=== PATIENT | female | born 1960 | race American Indian/Alaskan Native ===

== ENCOUNTER 2025-02-10 11:47 | Outpatient (CLI) | payer MEDICARE, SELFPAY ==
--- OUTSIDE RECORDS SUMMARY | 2025-02-10 11:53 | XMS_ITS | Encounter Summary ---
Author Organization [facility] Address [address] [place] [address] Care Team Providers Care Creel Operator Name Role Phone Harpreet Duarte MD Primary Care Provider [phone] Reason for Visit * Reason Comments Medication Refill Encounter Details Date Type Department Care Team (Late Contact Info) Description 06/24/2014 Refill [facility] Cancer and Breast Med Onc [place] [address] [place] [address] Fazal, Apolinar Ag MD [address] [place] [address] Social History Tobacco Use Types Packs/Day Years Used Date Smoking Tobacco: Former Cigarettes 1 20 0 08/07/1985 - 08/07/2005 Smokeless Tobacco: Never Alcohol Use Standard Drinks/Week Comments Yes 0.8 (1 standard drink = 0.6 oz p ure alcohol) social Comments No Sex and Gender Information Value Date Recorded Sex Assigned at Not on file 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 Gender Identity Not on file Sexual Orientation Not on file Occupation Industry Job Start Date Job End Date Not on file Not on file Not on file Not on file documented as of this encounter Miscellaneous Notes * Telephone Encounter - Lacey Larios RN - 06/24/2014 3:26 PM CST SCRIPT REFILLED for effexor AL CARE GIVER documented in this encounter Plan of Treatment Upcoming Encounters Date Type Department Care Team (Late Contact Info) Description 02/16/2025 8:45 AM CDT Office Visit [facility] Heart [facility] - [facility] [address] [place] [address] Ramy Plummer MD [address] [place], [place] [id number] 02/20/2025 10:45 AM CDT Office Visit [facility] Pulmonology [facility] [address] [place] [address] Shell Durand MD [address] [place] [address] 05/25/2025 1:40 PM CDT Office Visit [facility] Primary Care [facility] [address] [place] [address] Harpreet Duarte MD [address] [facility] [address] [place] [address] documented as of this encounter Visit Diagnoses Not on filedocumented in this encounter Care Teams Creel Operator Relationship Specialty Start Date End Date Harpreet Duarte MD PCP - General Internal Medicine 08/07/13 documented as of this encounter
--- OUTSIDE RECORDS SUMMARY | 2025-02-10 11:53 | XMS_ITS | Clinical Summary ---
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 Gender Identity Not on file Sexual Orientation Not on file Plan of Treatment Health Maintenance Due Date Last Done Comments Hepatitis C Virus (HCV) Screening 1961 TdaP Immunization 1961 Pap Smear 1982 Cervical Cancer Screening (CCS) 1991 HPV/Cotest 1991 Colonoscopy 2006 Colorectal Cancer Screening 2006 Cologuard 2011 Immunochemical Fecal Occult Blood 2011 Mammogram 2011 Pneumococcal Immunization (5 0+ years) (1 of 1 - PCV) 2011 Zoster Immunization (1 of 2) 2011 Influenza Immunization (#1) 2024 SARS-COV-2 Immunization ( - 2023-25 season) 2024 Respiratory Syncytial Virus (RSV) Immunization (Adult) (1 - 1-dose 75+ series) 01/20/2036 Hepatitis B Immunization Aged Out No longer eligible based on patient's age to complete this topic Meningococcal Immunization (ACWY) Aged Out No longer eligible based on patient's age to complete this topic Pneumococcal Immunization Combined Aged Out No longer eligible based on patient's age to complete this topic Rotavirus Immunization Aged Out No lo nger eligible based on patient's age to complete this topic
--- OUTSIDE RECORDS SUMMARY | 2025-02-10 11:53 | XMS_ITS | Encounter Summary ---
Author Organization [facility] Address [address] [place] [address] Care Team Providers Care Packaging Mechanic Name Role Phone Harpreet Duarte MD Primary Care Provider [phone] Reason for Visit * Reason Onset Date Comments Surgical Clearance 02/09/2025 Encounter Details Date Type Department Care Team (Late st Contact Info) Description 02/09/2025 Telephone [facility] Heart and Vascular At [facility] [address] [place] [address] Ramy Plummer MD [address] [place] [address] [address] [place] [address] Surgical Clearance Social History Tobacco Use Types Packs/Day Years Used Date Smoking Tobacco: Former Cigarettes 1 20 0 08/07/1985 - 08/07/2005 Passive Smoke Exposure: Past Smokeless Tobacco: Never Alcohol Use Standard Drinks/Week Comments Yes 0.8 (1 standard drink = 0.6 oz p ure alcohol) social Financial Resource Strain Answer Date R ecorded How hard is it for you to pa y for the very basics like food, housing, medical care, and heating? Not hard at all 04/11/2022 Food Insecurity Answer Date Recorded In the past 12 months, have you worried that your food would run out before you had money to buy more? Never true 04/11/2022 In the past 12 months, did y ou run out of food and didn't have money to buy more? Never true 04/11/2022 Transportation Needs Answer Date Record ed In the past 12 months, has l ack of transportation kept you from medical appointments or from getting medications? No 04/11/2022 Lack of Transportation (Non-Medical) Not on file 04/11/2022 Feeling Safe Answer Date Recorded Are you in a relationship wi th someone who hurts you emotionally and/or physically? 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 The patient is scheduled for a knee procedure on 03/06/25. Nuzhat states she faxed a clearance formon 02/09 at 10:45. If you have any questions please give the Nuzhat a call at [phone]. Thank you. * Telephone Encounter - Chata Shen RN - 02/09/2025 12:11 PM CDT Spoke with pt regarding appointment. Rescheduled her to a sooner appt. * Telephone Encounter - Chata Shen RN - 02/09/2025 11:45 AM CDT LMOM with call back number to discuss. * Telephone Encounter - Neda Vasquez - 02/09/2025 11:16 AM CDT Pt called today and stated that she needs a surgical clearance for a knee surgery that is schedule for 03-06-25 [phone] Thks documented in this encounter Plan of Treatment Upcoming Encounters Date Type Department Care Team (Late st Contact Info) Description 02/16/2025 8:45 AM CDT Office Visit [facility] Heart and Vascular - [facility] [address] [place] [address] Ramy Plummer MD [address] [place] [address] 02/20/2025 10:45 AM CDT Office Visit [facility] Pulmonology [facility] [address] [place] [address] Shell Durand MD [address] [place] [address] 05/25/2025 1:40 PM CDT Office Visit [facility] Primary Care [facility] [address] [place] [address] Harpreet Duarte MD [address] [facility] [address] [place] [phone] documented as of this encounter Visit Diagnoses Not on filedocumented in this encounter Care Teams Packaging Mechanic Relationship Specialty Start Date End Date Harpreet Duarte MD PCP - General Internal Medicine 08/07/13 documented as of this encounter
--- OUTSIDE RECORDS SUMMARY | 2025-02-10 11:53 | XMS_ITS ---
Author Organization [facility] Address [address] [place] [address] Care Team Providers Care Pathologist Name Role Phone Harpreet Duarte MD Primary Care Provider Active Problems Patient Care Coordination No te Formatting of this note migh t be different from the original. Primary Care: Harpreet Duarte MD Referring Provider: Harpreet Duarte MD [address] [place] [address] Other: Other: Library Helper- Dr. Elian Parrish Office Ramy Plummer MD- [facility] Heart & Vascular ( [facility]) P [id number] 09/25/24 Prev 10/09/22 Problem Noted Date Diagnosed Date CAD 03/04/2024 Overview (03/04/2024): S/P PCI LAD 12/20 LVEF 42% ex nuc stress 12/20 Recurrent major depressive disorder 04/09/2023 Restless leg syndrome 04/09/2023 History of breast cancer 10/09/2022 Lumbar stenosis with neurogenic claudication Hx of bilateral mastectomy 01/31/2022 Hypertrophic cardiomyopathy 11/23/2015 Overview (09/09/2024): Mid septal akinesis, preserved LV fxn, no LVOT obstruct echo (I reviewed) 09/14 cardiac MRI 10/12 LV findings unchanged echo 04/21 SVT 09/02/2013 Overview (11/23/2022): HR 180 heart monitor 08/12 Essential hypertension 09/02/2013 Goiter 08/07/2013 Adjustment reaction 08/07/2013 Menopausal disorder 08/07/2013 Current Treatment and Therapy Plans No current plan information found. Past Treatment and Therapy Plans No past plan information found. 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, left 09/02/2013 12/17/2020 Overview (05/28/2014): Stage: Clinical T1 N0; left pT1c N0, right pT1b N0 Date of diagnosis: 09/01/13 Diagnosis: left low grade 1.3 cm IDC 0/1 LN ER(+) MA(+) HER 2 (-) right low grade 0.8 cm ILC 0/4 NL ER(+) MA(+) Her 2 (-) Surgeon: Marisa Gomez Surgery: 11/10/13: bilateral TM/SLN and bilateral TE; 02/03/14: bilateral SHAE; 02/07/14: left flap removal secondary to clotting and TE placement; 05/22/14: left implant placement Medical Oncologist: Fazal Chemotherapy: none Radiation: none Hormonal therapy: Letrozole 2.5 mg daily started 11/25/13 Oncotype 14 (9% recurrence) BRCA- insurance denied Cardiomyopathy 09/02/2013 08/31/2015 Tachycardia 08/07/2013 09/02/2013 Frozen shoulder 08/07/2013 12/17/2020
--- OUTSIDE RECORDS SUMMARY | 2025-02-10 11:53 | XMS_ITS | Encounter Summary ---
Author Organization [facility] Address [address] [place] [address] Care Team Providers Care Orthopedic Physician Name Role Phone Harpreet Duarte MD Primary Care Provider [phone] Reason for Visit * Reason Onset Date Comments Pre Authorization- Orthoplasty 04/27/2023 Encounter Details Date Type Department Care Team (Late st Contact Info) Description 04/27/[address] 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 Gender Identity Not on file Sexual Orientation Not on file Occupation Industry Job Start Date Job End Date Not on file Not on file Not on file Not on file documented as of this encounter Miscellaneous Notes * Telephone Encounter - Rosie Espinosa - 04/27/2023 2:40 PM CDT Medical Surgical Clearance on doctor desk waiting or Dr.Kazdan mora [facility] : Surgery date 05/01/2023 [phone] * Telephone Encounter - Janet Olsen - 04/27/2023 11:40 AM CDT Prior Authorization Request Caller: Yulissa Lopez states that she faxed the request over to the office twice but still hasn't heard back. Date of procedure is 05/01 Name of Medication or Procedure: Orthoplasty right Hip Reason: Arthritis of Right Hip [phone] documented in this encounter Plan of Treatment Upcoming Encounters Date Type Department Care Team (Late st Contact Info) Description 02/16/2025 8:45 AM CDT Office Visit [facility] Heart and Vascular - [facility] [address] [place] [address] Ramy Plummer MD [address] [place] [address] 02/20/2025 10:45 AM CDT Office Visit [facility] Pulmonology [facility] [address] [place] [address] Shell Durand MD [address] [facility] [address] [place] [address] 05/25/2025 1:40 PM CDT Office Visit [facility] [address] [place] [address] Harpreet Duarte MD [address] [place] [address] [address] [place] [address] documented as of this encounter Visit Diagnoses Not on filedocumented in this encounter Additional Health Concerns Assessment Noted Time PHQ-9 Depression Total Score: 2 04/11/20 22 2:35 PM CDT documented as of this encounter Care Teams Orthopedic Physician Relationship Specialty Start Date End Date Harpreet Duarte MD PCP - General Internal Medicine 08/07/13 documented as of this encounter
--- OUTSIDE RECORDS SUMMARY | 2025-02-10 11:53 | XMS_ITS | Clinical Summary ---
Author Organization [facility] Address [address] [place] [address] Care Team Providers Care Stock Car Driver Name Role Phone Harpreet Duarte MD Primary Care Provider [phone] Allergies Active Allergy Reactions Criticality Noted Date Comments Bupropion Hcl Other (See Comments) 04/20/2021 Flare rls Medications SUMAtriptan (IMITREX) 50 mg tablet Take 1 Tab by mouth 1 time daily as needed. may repeat in 2 hours; max dose 200mg in 24 hours Active venlafaxine (EFFEXOR XR) 150 mg Extended Release 24 hour capsuleIndications :Hot flashes,Anxiety disorder, unspecified type,Post-menopaus al Take 1 Capsule (150 mg) by mouth daily. 90 Capsule 3 05/18/20 23 Active aspirin (ECOTRIN EC) 81 mg Tablet, Delayed Release (E.C.) Take 1 Tablet (81 mg) by mouth daily. 12/25/19 24 Active omeprazole (PriLOSEC) 40 mg Capsule, Delayed Release(E.C.) take 1 capsule by mouth every day 100 Capsule 3 01/07/20 24 Active Additional Information Patient not taking.Reported on 09/25/2024 clopidogreL (PLAVIX) 75 mg Tablet Take 1 Tablet (75 mg) by mouth daily. Take 300mg (4 tablets) loading dose in the AM and then 75mg once daily thereafter 100 Tablet 3 02/05/20 24 Active gabapentin (NEURONTIN) 300 mg capsuleIndications :Restless leg syndrome take 1 capsule by mouth three times a day 300 Capsule 3 02/26/20 24 Active atorvastatin (Lipitor) 80 mg tablet Take 1 Tablet (80 mg) by mouth daily. 90 Tablet 4 03/04/20 24 Active metoprolol succinate (TOPROL XL) 100 mg Extended Release 24 hour tablet take 1 tablet by mouth every day 90 Tablet 3 03/18/20 24 Active HYDROcodone-acetam inophen (NORCO) 5-325 mg tabletIndications: Osteoarthritis of right knee, unspecified osteoarthritis type Take 1 Tablet by mouth every 4 hours as needed for Pain, Moderate. Max Daily Amount: 6 Tablets 42 Tablet 02/03/20 25 Active HYDROcodone-acetam inophen (NORCO) 5-325 mg tabletIndications: Osteoarthritis of right knee, unspecified osteoarthritis type Take 1 Tablet by mouth every 4 hours as needed for Pain, Moderate. Max Daily Amount: 6 Tablets 42 Tablet 01/09/20 25 025 Discontin ued(Reord er) HYDROcodone-acetam inophen (NORCO) 5-325 mg tabletIndications: Osteoarthritis of right knee, unspecified osteoarthritis type Take 1 Tablet by mouth every 4 hours as needed for Pain, Moderate. Max Daily Amount: 6 Tablets 42 Tablet 01/23/20 25 025 Discontin ued(Reord er) Active Problems Patient Care Coordination No te Formatting of this note migh t be different from the original. Primary Care: Harpreet Duarte MD Referring Provider: Harpreet Duarte MD [address] [place] [phone] Other: Other: Grievance Manager- Dr. Elian Parrish Office Ramy Plummer MD- [facility] ( [facility]) P [id number] 09/25/24 Prev 10/09/22 Problem Noted [...] 08/07/2013 Adjustment reaction 08/07/2013 Menopausal disorder 08/07/2013 Resolved Problems Problem Noted Date Diagnosed Date [...] grade 1.3 cm IDC 0/1 LN ER(+) MO(+) HER 2 (-) right low grade 0.8 cm ILC 0/4 NL ER(+) MO(+) Her 2 (-) Surgeon: Marisa Gomez Surgery: 11/10/13: bilateral TM/SLN and bilateral TE; 02/03/14: bilateral SHAE; 02/07/14: left flap removal secondary to clotting and TE placement; 05/22/14: left implant placement Medical Oncologist: Fazal Chemotherapy: none Radiation: none Hormonal therapy: Letrozole 2.5 mg daily started 11/25/13 Oncotype 14 (9% recurrence) BRCA- insurance denied Cardiomyopathy 09/02/2013 08/31/2015 Tachycardia 08/07/2013 09/02/2013 Frozen shoulder 08/07/2013 12/17/2020 Encounters Date Type Department Care Team Description 02/09/2025 Telephone [facility] V[facility] At [place] [address] [place] [address] Ramy Plummer MD Surgical Clearance 02/02/2025 Refill [facility] Primary Care [address] [place] [address] Harpreet Duarte MD Osteoarthritis of right knee, unspecified osteoarthritis type 01/22/2025 [facility] [address] [place] [phone] Harpreet Duarte MD Osteoarthritis of right knee, unspecified osteoarthritis type 01/13/2025 External Device Data [facility] ABSTRACTION Provider, Abstract 01/08/[address] [place] [address] Harpreet Duarte MD Osteoarthritis of right knee, unspecified osteoarthritis type 01/06/2025 External Device Data [facility] ABSTRACTION Provider, Abstract 01/06/2025 External Device Data [facility]STRACTION Provider, Abstract 01/06/2025 External Device Data [facility]STRACTION Provider, Abstract 12/25/2024 Orders Only [address] [place] [address] Provider, Abstract 12/25/[address] [place] [address] Harpreet Duarte MD 12/19/[address] [place] [address] Harpreet Duarte MD Osteoarthritis of right knee, unspecified osteoarthritis type 12/11/[address] [place] [address] Harpreet Duarte MD Osteoarthritis of right knee, unspecified osteoarthritis type 12/03/2024 Results Follow-Up [facility] Gastroenterology [facility] [address] [facility] [address] [place] [address] Douglas Johnson, DO PATHOLOGY 12/02/2024 8:00 AM CDT - 12/02/2024 8:30 AM CDT Surgery [facility] [address] [facility] [address] [place] [address] Douglas Johnson, DO COLONOSCOPY 12/02/2024 7:42 AM CDT Anesthesia Event [facility] [address] [place] [address] Cyrus Fuller MD 12/02/2024 7:13 AM CDT - 12/02/2024 8:53 AM CDT Hospital Encounter [facility] [address] [place] [address] Douglas Johnson, Screen for colon cancer Discharge Disposition: Home or Self Care 12/02/2024 External Device Data ST[facility] ABSTRACTION Provider, Abstract 12/01/2024 Refill [facility] Care [address] [address] Harpreet Duarte MD Osteoarthritis of right knee, unspecified osteoarthritis type 11/21/2024 Refill [facility] Care [address] [address] Harpreet Duarte MD Osteoarthritis of right knee, unspecified osteoarthritis type 11/11/2024 External Device Data [facility] ABSTRACTION Provider, Abstract 11/11/[address] [address] Harpreet Duarte MD Osteoarthritis of right knee, unspecified osteoarthritis type from Last 3 Months Immunizations Immunization Administration Dates Next Due (ADACEL/BOOSTRIX)(10 YR UP) TDAP VACCINE, 0.5ML, IM 08/07/2013 INFLUENZA VACCINE QUADRIVALENT 6 MOS UP PF IM Influenza Seasonal Unspecified Formulation IM Family History Medical History Relation Name Comments High Cholesterol Brother 1 Hypertension Brother 1 Heart Attack Brother 2 Heart Disease Brother 2 High Cholesterol Brother 2 Hypertension Brother 2 Colon Cancer Father Stomach Cancer Father Stomach Cancer Maternal Cousin 2 cousins 46 and 47 Other Maternal Grandfather brain A neurysm Dementia Mother High Cholesterol Mother Hypertension Mother Breast Cancer Neg Hx Ovarian Cancer Neg Hx Relation Name Status Comments Brother 1 Brother 2 Father Maternal Cousin 2 cousins Maternal Grandfather Mother Social History Tobacco Use Types Packs/Day Years Used Date Smoking Tobacco: Former Cigarettes 1 20 0 08/07/1985 - 08/07/2005 Passive Smoke Exposure: Past Smokeless Tobacco: Never Tobacco Cessation:Counseling Given: No Alcohol Use Standard Drinks/Week Comments Yes 0.8 [...] on file 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 Gender Identity Not on file Sexual Orientation Not on file Occupation Industry Job Start Date Job End Date Not on file Not on file Not on file Not on file Last Filed Vital Signs Vital Sign Reading Time Taken Comments Blood Pressure 102/75 12/02/2024 8:27 AM CDT Pulse 71 12/02/2024 8:27 AM CDT Temperature 36.2 C (97.1 F) 12/02/2024 8:10 AM CDT Respiratory Rate 16 12/02/2024 8:27 AM CDT Oxygen Saturation 100% 12/02/2024 8:27 AM CDT Inhaled Oxygen Concentration - - Weight 74.8 kg (165 lb) 12/02/2024 7:21 AM CDT Height 162.6 cm (5' 4) 12/02/2024 7:21 AM CDT Body Mass Index 28.32 12/02/2024 7:21 AM CDT Plan of Treatment Upcoming Encounters Date Type Department Care Team (Late st Contact Info) Description 02/16/2025 8:45 AM CDT Office Visit [facility] V[facility] - [address] [place] [address] Ramy Plummer MD [address] [place] [address] 02/20/2025 10:45 AM CDT Office Visit [facility] Pulmonology [facility] [address] [place] [address] Shell Durand MD [address] [place] [address] 05/25/2025 1:40 PM CDT Office Visit [facility] Primary Care [facility] [address] [place] [address] Harpreet Duarte MD [address] [place] [address] Health Maintenance Due Date Last Done Comments Pre-Diabetes and Diabetes Screening 1960 FIT-DNA Q 3 years 2006 FIT/FOBT Q 1 year 2006 Flex Sig/CT Colonography Q 5 years 2006 ZOSTER VACCINE (1 of 2) 2011 RSV VACCINE (60+ or ) (1 - Risk 60-74 years 1-dose series) 2021 DTAP/TDAP/TD VACCINES (2 - T d or Tdap) 08/07/2023 08/07/2013 INFLUENZA VACCINE (#1) 2025 , 04/11/2022, 04/20/2021, Additional history exists COLORECTAL SCREENING 12/03/2027 12/02/2024, 12/03/19 25 Colorectal Cancer Screening 12/03/2027 Medicare Advantage (OR) Preventative Visit/Annual Wellness Visit Completed 09/25/2024, 10/08/2023, 10/09/2022, Additional history exists Medical Devices Implanted Type Area Dictating Machine Typist Device Identifier Shelf Expiration Date Model / Serial / Lot Dev Closure Angioseal 6fr Vip [id number] - [id number] Implanted:Qty: 1 on 12/25/2023 at [facility] Closure Device Right: Groin [facility] [employer] 07/16/2024 [id number] / / [id number] Hemostatic Surgiflo 8ml W/ Thrombin 2994 - [id number] Implanted:Qty: 1 on 08/22/2022 by Nathan Breaux MD at [facility] Hemostatic Spine Lumbar [employer] [id number] 12/28/2023 [id number] / / [id number] Natrelle Breast Implant 335cc Implanted:Qty: 1 on 01/13/2015 by Naveen Gomez MD at [facility] Mammary Left: Breast INAMED [id number] / [id number] / Description:exp 2017-09, SN1 [id number] Highly Cohesive Anatomically Shaped Silicone filled breast implant Grain Operations Manager Microvasc Anastomotic 3.0mm [id number] - [id number] Implanted:Qty: 1 on 02/03/2014 by Naveen Gomez MD at [facility] Other Left: Chest SYNOVIS- MICRO [employer] ALLIANCE 07/16/2018 [id number] / / [id number] Grain Operations Manager Clare Vasc 2.5 Mm [id number] - [id number] Implanted:Qty: 1 on 02/03/2014 by Naveen Gomez MD at [facility] Other Right: Chest SYNOVIS[employer] MI[employer] ALLIANCE 05/02/2017 [id number] / / [id number] Grain Operations Manager Microvasc Anastomotic 3.0mm [id number] - [id number] Implanted:Qty: 1 on 02/03/2014 by Naveen Gomez MD at [facility] Other Bilateral: Chest SYNOVIS- MICRO [employer] ALLIANCE 07/10/2018 [id number] / / [id number] Allograft Putty 5ml Attrax [id number] - [id number] Implanted:Qty: 1 on 08/22/2022 by Nathan Breaux MD at [facility] Putty Spine Lumbar NUVASIVE INC 05/06/2025 [id number] / / [id number] Reline-O Cocr Royce 5.0x60mm Implanted:Qty: 2 on 08/22/2022 by Nathan Breaux MD at [facility] Royce N/A: Spine Lumbar [employer] [id number] / / LOAD 13, 08/22/22 Nuvasive Reline Mod Shank 5.5x35mm Implanted:Qty: 6 on 08/22/2022 by Nathan Breaux MD at [facility] Screw N/A: Spine Lumbar [employer] [id number] / / LOAD 13, 08/22/22 Description:All Nuvasive spi nal hardware was processed on requisition,[id number]. Nuvasive Rmm Mod Tulip Implanted:Qty: 6 on 08/22/2022 by Nathan Breaux MD at [facility] Screw N/A: Spine Lumbar [employer] INC [id number] / / LOAD 13, 08/22/22 Nuvasive Rss Lock Screw Implanted:Qty: 6 on 08/22/2022 by Nathan Breaux MD at [facility] Screw N/A: Spine Lumbar [employer] [id number] / / LOAD 13, 08/22/22 Sealant Floseal W/ Adptr 10ml [id number] - [id number] Implanted:Qty: 1 on 02/07/2014 by Naveen Gomez MD at [facility] Sealant Left: Breast GROVER- BIOSCIENCE 04/28/2015 [id number] / / [id number] Stent Synergy Xd 2.5x20mm Evrlms Elut [id number] - [id number] Implanted:Qty: 1 on 12/25/2023 at [facility] Stent Left: Coronary BOSTON [employer] VIVI 09/25/2024 [id number] / / [id number] Stent Synergy Xd 3.0x12mm Evrlms Elut [id number] - [id number] Implanted:Qty: 1 on 12/25/2023 at [facility] Stent Left: Coronary [employer] V[employer] 06/12/2025 [id number] / / [id number] Stent Synergy Xd 3.0x12mm Evrlms Elut [id number] - [id number] Implanted:Qty: 1 on 12/25/2023 at [facility] Stent Left: Coronary [employer] VIVI 06/12/2025 [id number] / / [id number] Stent Synergy Xd 3.0x8mm Evrlms Elut [id number] - [id number] Implanted:Qty: 1 on 12/25/2023 at [facility] Stent Left: Coronary [employer] 08/06/2025 [id number] / / [id number] L Knee Replacement Explanted Type Area Dictating Machine Typist Device Identifier Shelf Expiration Date Model / Serial / Lot Accounts Administrator Mammary 500ml 133mv-14 - [id number] Implanted:Qty: 1 on 11/10/2013 by Naveen Gomez MD at [facility] Explanted:Qty: 1 on 02/03/2014 by Travis Roman MD at [facility] Mammary Left: Breast ALLERGAN- MEDICAL 07/12/2017 133MV-14 / [id number] / Description:240 MLS FILLED B Y Accounts Administrator Mammary 500ml 133mv-14 - [id number] Implanted:Qty: 1 on 11/10/2013 by Naveen Gomez MD at [facility] Explanted:Qty: 1 on 02/03/2014 by Naveen Gomez MD at [facility] Mammary Right: Breast ALLERGAN- MEDICAL 07/29/2017 133MV-14 / [id number] / Description:240 mls by dR JOANNE DUMONT Accounts Administrator Mammary 400ml 133mv-13 - [id number] Implanted:Qty: 1 on 02/07/2014 by Naveen Gomez MD at [facility] Explanted:Qty: 1 on 05/22/2014 by Naveen Gomez MD at [facility] Mammary Left: Breast ALLERGAN- MEDICAL 09/26/2017 133MV-13 / [id number] / Description:FILLED WITH 60ML NaCl 0.9% Anatomically Shaped Silicone-Filled Breast Implant Implanted:Qty: 1 on 05/22/2014 by Naveen Gomez MD at [facility] Explanted:Qty: 1 on 05/30/2014 by Naveen Gomez MD at [facility] Mammary Left: Breast ALLERGAN- MEDICAL 04/28/2018 [id number] / [id number] / Accounts Administrator Mmmry Tab 300ml 133mv-12-T - [id number] Implanted:Qty: 1 on 09/09/2014 by Naveen Gomez MD at [facility] Explanted:Qty: 1 on 01/13/2015 by Naveen Gomez MD at [facility] Mammary Left: Breast ALLERGAN- MEDICAL 06/09/2018 133MV-12- T / [id number] / Procedures Procedure Name Priority Date/Time Associated Diagnosis Comments COLONOSCOPY REPORT 12/02/2024 8: 09 AM CDT [place] COLONOSCOPY FLX DX W/COLLJ SPEC WHEN PFRMD 12/02/2024 8:00 AM CDT Screen for colon cancer PATHOLOGY Pathology 12/02/2024 7:54 AM CDT Screen for colon cancer from Last 3 Months Results * COLONOSCOPY REPORT (12/02/2024 8:09 AM CDT) Narrative Procedure Note Douglas Johnson DO - 12/02/2024 8:09 AM CDT [facility] Endoscopy Patient Name: Mary Lou Llanes Procedure Date: 12/02/2024 Date of : 1960 Attending MD: Douglas Johnson MD, Procedure: Colonoscopy Indications: Screening for colon cancer: Family history of colorectal cancer in distant relative(s) before age 60, This is the patient's first colonoscopy, Pt reports her father had colon cancer at age 46 and brother at age 47 of cause unknown Providers: Douglas Johnson MD Referring MD: Harpreet Duarte MD Medicines: Monitored Anesthesia Care Complications: No immediate complications. Procedure: Informed consent was obtained for the procedure, including moderate sedation after risks were discussed. Based on the pre-procedure assessment, including review of the patient's medical history, medications, allergies, and review of systems, the patient was deemed to be an appropriate candidate for sedation. A timeout was performed. Continuous ECG monitoring, pulse oximetry, blood pressure monitoring, and direct observation were performed. The Colonoscope was introduced through the anus and advanced to the terminal ileum. The colonoscopy was performed without difficulty. The patient tolerated the procedure well. The quality of the bowel preparation was good. Anatomical landmarks were photographed. Estimated Blood Loss: Estimated blood loss was minimal. Findings: The perianal examination was normal. Three sessile polyps were found in the hepatic flexure. The polyps were 6 to 9 mm in size. These polyps were removed with a cold snare. Resection and retrieval were complete. Estimated blood loss was minimal. An 8 mm polyp was found in the rectum. The polyp was sessile. The polyp was removed with a cold snare. Resection and retrieval were complete. Two sessile polyps were found in the rectum. The polyps were 3 to 4 mm in size. These polyps were removed with a jumbo cold forceps. Resection and retrieval were complete. Estimated blood loss was minimal. Retroflexion in the right colon was performed. The terminal ileum appeared normal. Diverticula were found in the sigmoid colon and descending colon. No additional abnormalities were found on retroflexion. Impression: - Three 6 to 9 mm polyps at the hepatic flexure, removed with a cold snare. Resected and retrieved. - One 8 mm polyp in the rectum, removed with a cold snare. Resected and retrieved. - Two 3 to 4 mm polyps in the rectum, removed with a jumbo cold forceps. Resected and retrieved. - The examined portion of the ileum was normal. - Diverticulosis in the sigmoid colon and in the descending colon. Recommendation: - Await pathology results. - Repeat colonoscopy in 3 years for surveillance. - High fiber diet. Douglas Johnson MD 12/02/2024 8:09:21 AM This report has been signed electronically. Number of Addenda: [address]; [place] [address] us Douglas Johnson DO GI PROCEDURE ORDERABLES Fin al Result * PATHOLOGY (12/02/2024 7:54 AM CDT) CASE REPORT Surgical Pathology Report Case: [id number] Authorizing Provider: Douglas Johnson DO Collected: 12/02/2024 07:54 AM Ordering Location: [facility] Received: 12/02/2024 10:12 AM Pathologist: Kofi Rodriguez MD Specimens: A) - Hepatic flexure, polyp x3 B) - Rectum, polyp x3 3:27 PM T [facility] FINAL DIAGNOSIS A. Colon, hepatic flexure, polypectomy x 3: - Sessile serrated polyp(s), multiple fragments - Tubular adenoma(s), two fragments B. Rectum, polypectomy x 3: - Tubular adenoma - Hyperplastic polyps, multiple fragments 3:27 PM T [facility] [employer] [facility] at 1527 CDT GROSS DESCRIPTION The specimens are received in two containers each labeled Mary Lou Llanes. Received in the first container additionally labeled hepatic flexure polyps x 3 are 7 pieces of pink-don tissue ranging from 0.2 to 1.3 cm in greatest dimension. All are submitted in cassette A1. Received in the second container additionally labeled rectum polyps x 3 are 5 pieces of pink-don tissue ranging from 0.3 to 0.5 cm in greatest dimension. All are submitted in cassette B1. [facility] 3:27 PM T [facility] MICROSCOPIC DESCRIPTION The slides are labeled [id number] and Mary Lou Llanes. A. Sections show 4 fragments of sessile serrated polyp(s) and 2 fragments of tubular adenoma(s). There is no evidence of high-grade dysplasia. B. Sections show 1 fragment of tubular adenoma and 4 fragments of hyperplastic polyps. There is no evidence of high-grade dysplasia. 3:27 PM T [facility] [employer] [facility] OPERATIVE PROCEDURE 1: COLONOSCOPY 3:27 PM T [facility] [employer] [facility] CLINICAL INFORMATION A Colon Polyp(s). Adenomatous vs hyperplastic vs other. Colon Polyp(s). Adenomatous vs hyperplastic vs other. screening Z12.11-Screen for colon cancer 3:27 PM CDT [facility] COMMENT Special stain, immunohistochemical, and/or in situ hybridization results are interpreted with controls that demonstrate appropriate staining reactions. Note on use of immunohistochemistry reagents and in situ hybridization probes: These tests were developed and their performance characteristics determined by [facility], Department of Laboratory Medicine. It has not been cleared or approved by the U.S. Food and Drug Administration. The FDA has determined that such clearance or approval is not necessary. The test is used for clinical purposes. It should not be regarded as investigational or for research. This laboratory is certified to perform high complexity testing. Frozen section/operating room consultation, gross examination and dissection, and case sign out may have been performed in part or completely in the following laboratories: [facility], CLIA #[id number] [address] [place] [address] [facility], CLIA #[id number] [address] [place] [address] [facility] [place] #[id number] [address] [place] [address] This report was created with the [employer] voice-activated dictation system. Inherent to this system is the possibility of syntax, grammar, punctuation and other errors that could impact the interpretation of the report. If there are interpretative questions about aspects of this report, please contact the performing pathologist. 3:27 PM CDT [facility] Tissue (Hepatic flexure) Collection / Unknown 12/02/2024 7:54 AM CDT 12/02/2024 10:12 AM CDT Comment:Colon Polyp(s). Jorje omatous vs hyperplastic vs other. Tissue specimen (specimen) ENTIRE RECTUM / Unknown 12/02/2024 8:06 AM CDT 12/02/2024 10:12 AM CDT Comment:Colon Polyp(s). Jorje omatous vs hyperplastic vs other. Douglas Johnson DO PATHOLOGY/CYTOLOGY ORDERABL ES Final Result [facility] CLIA# [id number] [address] [place] [address] from Last 3 Months Insurance [employer] O [facility] Address: [facility] [id number] [place] [address] Medicare Part D RX [employer] [id number] [place] [id number] Advance Directives For more information, please contact: [phone] * Full Code (Latest Code Status on File) Date Activated Date Inactivated Comments 12/02/2024 7:23 AM 12/02/2024 10:53 AM * Full Code Date Activated Date Inactivated Comments 12/25/2023 11:06 AM 12/26/2023 12:50 AM * Full Code Date Activated Date Inactivated Comments 08/22/2022 1:47 PM 08/25/2022 4:51 PM * Full Code Date Activated Date Inactivated Comments 08/22/2022 6:12 AM 08/22/2022 1:47 PM * Full Code Date Activated Date Inactivated Comments 12/08/2015 11:43 AM 12/08/2015 8:12 PM Care Teams Stock Car Driver Relationship Specialty Start Date End Date Harpreet Duaret MD PCP - General Internal Medicine 08/07/13
--- NOTE | 2025-02-10 12:41 | ECG_ITS ---
Test Date: 2025-02-10 13:14:22 Measurements Intervals Emmons Rate: 77 P: 50 CO: 143 QRS: -17 QRSD: 100 T: 55 QT: 398 QTc: 453 Interpretive Statements SINUS RHYTHM WITH OCCASIONAL SUPRAVENTRICULAR PREMATURE COMPLEXES POSSIBLE LEFT ATRIAL ENLARGEMENT [-0.1mV P WAVE IN V1/V2] POOR R-WAVE PROGRESSION LEFT VENTRICULAR HYPERTROPHY AND ST-T CHANGE [VOLTAGE CRITERIA PLUS ST/T ABNORMALITY] ABNORMAL ECG No previous ECG available for comparison Electronically Signed On 02-10-2025 13:27:51 CDT by Naveen Liriano M.D.
[2025-02-10 13:35] LABS: Hematocrit 41.6 % (37.0-47.0); Hemoglobin 14.0 g/dL (12.0-15.0); Immature Granulocyte Percent A 0.3 % (0-0.5); Lymphocytes Absolute Auto 2.77 K/mm3 (0.9-3.2); Mean Corpuscular HGB Conc 33.7 g/dl (32-36); Mean Corpuscular Hemoglobin 31.8 pg (26-34); Mean Corpuscular Volume 94.5 fl (80-100); Nucleated Red Blood Cells Absolute Auto 0.000 K/mm3 (0.0-0.012); Nucleated Red Blood Cells Perc 0.0 % (0.0-0.2); Platelet Count Result 300 k/mm3 (150-375); Red Blood Count 4.40 M/mm3 (4.2-5.4); White Blood Count 9.2 K/mm3 (4.5-10.0)
[2025-02-10 13:45] LABS: Hemoglobin A1C 5.8 % (<5.7)
[2025-02-10 13:55] LABS: Albumin Level 4.4 g/dL (3.5-5.1); Anion Gap 10 mmol/L (4-12); Blood Urea Nitrogen 14 mg/dL (7-17); Calcium 9.6 mg/dL (8.4-10.2); Carbon Dioxide 26 mmol/L (22-30); Chloride 104 mmol/L (98-107); Estimated Glomerular Filt Rate > 60; Glucose 97 mg/dL (65-110); Potassium 4.1 mmol/L (3.4-5.0); Sodium 140 mmol/L (137-145)
== END 2025-02-10 11:48 | disposition home or self-care (01) ==
LOC: ANHSURGERY 11:51
PROVIDERS: PCP Internal Medicine; Visit Provider Orthopaedic Surgery
DX: Z01.818 Encounter for other preprocedural examination (principal); M17.11 Unilateral primary osteoarthritis, right knee; E78.5 Hyperlipidemia, unspecified
CPT/HCPCS: 80048; 80307; 82040; 83036; 85025; 87081; 93005

== ENCOUNTER 2025-03-05 03:04 | Day surgery (SDC) | payer MEDICARE, SELFPAY ==
[2025-02-10 12:17] VITALS: BP 134/80; PULSE 70; RESP 14; TEMP 36.5; O2SAT 100; BMI 27.2
--- NOTE | 2025-02-10 12:38 | PC.NURSE ---
Addendum entered by Nuzhat Silva RN 02/12/25 08:06: PT is aware to cont Aspirin per Dr Gonzalez, but not the am of procedure RN Addendum entered by Nuzhat Silva RN 02/12/25 08:05: TYPO BELOW- PT is to hold Plavix for [address] Gonzalez/Dr Plummer. Pt is aware of all and no questions JRRN Original Note: Report to the Outpatient Waiting Room, entrance under the green pavilion [facility], at time ___0600am____ on date __03/05/25 . Planned Procedure Time: _0730am .? Time changes happen often and if your time is changed the preop area will call you the afternoon before. - You and your visitor will be asked to self-screen and do not enter if you have any COVID symptoms. Please call surgeon if you need to reschedule. - A mask is optional within the hospital at this time. Patients may have clear liquids (water, carbonated beverages, clear teas, apple juice) until 3 hours prior to surgery with a maximum of 20 ounces. - No food from midnight until time of surgery and no smoking, or chewing tobacco (or any form of nicotine). No chewing gum, candy or mints. (0430am) Take only the following medications with a SIP of water on the morning of surgery: Hydrocodone if needed DO NOT STOP ANY OF YOUR OTHER PRESCRIPTION MEDICATIONS PRIOR TO SURGERY EXCEPT THE FOLLOWING Hold all vitamins and supplements for 3 days per anesthesiologist. Medications to discontinue per physician Plavix for 7 days prior Karen/Dr Plummer as well Date to take last dose___02/24/25 Please no make-up, nail upper sorbian, hairspray, perfume, deodorant, or body powder the day of surgery.? No jewelry (including any body piercings) or valuables the day of surgery, leave them at home.? Please take a shower or bath the night before, or the morning of, surgery with an antibacterial soap.? Wear comfortable, loose fitting clothing.? IRMA as directed, Overnight robe, josh shoes, walker, cell phone cell phone ophthalmic assistant, toiletries - Jewelry must be removed prior to entering the operating room.? Rings and piercings that are not removed may be cut off. - The hospital will not accept responsibility for valuables.? - Please leave all valuables, including medications, at home the day of surgery. If you are going home after surgery, a licensed buggy driver must drive you home.? - NO public transportation without another adult if you receive anesthesia. - We recommend that an adult stay with you for 24 hours following discharge. - We also recommend that you do not drive, make important decision, drink alcoholic beverages, or take any drugs that were not prescribed by your health care provider for at least 24 hours after your discharge time. Follow any additional instructions given to you from your surgeon. Telephone instructions given to __Patient and asked if any additional questions and then verbalized understanding. Patient advised to call surgeon office or pre surgery nurse liaison [phone] if any additional questions.
--- NOTE | 2025-03-04 12:42 | PM.IMHP ---
H&P: HPI History of Present Illness Date/Time: 03/04/25 12:42 Chief Complaint: Right knee DJD Narrative: 65-year-old female presents today for a right total knee arthroplasty. She has been having symptoms in the right knee since 2020. Patient has severe medial compartment osteoarthritis. She had a cortisone injection in October of this year which only helped for couple weeks. Patient has had cardiac stents placed approximately 1 year ago. Due to her cardiac history she is not a good candidate for anti-inflammatories. She has had her left knee replaced approximately 10 years ago this is doing very well for her. She feels at this point she is ready proceed with total knee arthroplasty on the right rather than continue nonsurgical treatment. Review of Systems Review of Systems: All systems reviewed & are unremarkable except as noted in HPI and below [facility] Surgical History Surgical History History of back surgery History of hip surgery right History of left knee surgery History of mastectomy Social History Social History (Updated 12/19/24 @ 08:59 by Prudence Acosta [facility]) Smoking packs per day: 1 Smoking cigarettes per day: 20.0 Years smoked: 30 Smoking pack-years: 30.00 Smoking status: Former smoker Tobacco type: cigarettes Second hand tobacco smoke exposure: Yes Smoking end date: 07/30/04 Additional smoking assessment comments: NO Nicotine in system Alcohol intake: current Alcohol use details: 1 monthly Substance use: never Do You Feel Safe in your Home?: Yes Lack of Transportation: No Lack of Food: Never True Current Housing: I Have Housing Concerned About Future Housing: No Difficulty Paying Gas/Electric Bills: No Difficulty Paying for Meds: No Currently Unemployed: No Education: High School Diploma/GED Difficulty w/ Childcare or Family Care: No Living arrangements: with family Spiritual care concerns: No Meds Home Medications and Allergies Home Medications ?Medication ?Instructions ?Recorded ?Confirmed ?Type atorvastatin 80 mg tablet (Lipitor) 80 mg PO DAILY 10/29/24 02/10/25 History clopidogrel 75 mg tablet 75 mg PO DAILY 10/29/24 02/10/25 History gabapentin 300 mg capsule 600 mg PO QHS 10/29/24 02/10/25 History hydrocodone 5 mg-acetaminophen 325 1 tablet PO Q6H PRN pain 10/29/24 02/10/25 History mg tablet metoprolol succinate 100 mg 100 mg PO .PM 10/29/24 02/10/25 History tablet,extended release 24 hr aspirin 81 mg tablet 81 mg PO DAILY 12/20/24 02/10/25 History Allergies Allergy/AdvReac Type Severity Reaction Status Date / Time morphine AdvReac Severe MIGRANES Verified 02/10/25 12:12 Exam Narrative: 65-year-old female alert. She is 5 ft 4 162 lb BMI is 27.3. Right knee range of motion is from 0-135 degrees. She has normal AP and mediolateral stability. Moderate effusion. Moderate tenderness over the medial joint line to palpation. No pain with patellofemoral grind. There is no tenderness over the lateral joint line. She has normal sensation to the left lower extremity. She reports some tingling to her big toe and the plantar aspect of the foot. There is no edema in lower extremity. Hip range of motion is full without discomfort, negative Stinchfield maneuver. She has normal muscle strength in all muscle groups right lower extremity. 2+ dorsalis pedis pulse palpable. Resp: Auscultation: clear to auscultation bilaterally Cardio: Rate: regular rate Rhythm: regular rhythm Assessment and Plan Assessment and plan (1) Primary osteoarthritis of right knee: Code(s): M17.11 - Unilateral primary osteoarthritis, right knee Status: Acute Plan 65-year-old female who has [id number] medial compartment osteoarthritis in the right knee. She is having continued symptoms on a daily basis. Cortisone injection in October this year offered her only minimal improvement of her symptoms. She has had her left knee replaced in the past and wished to proceed with the right. Surgical procedures well as the risks and complications were discussed in detail all questions were answered we proceed. Patient has seen her ship's officer, she was taken off of Plavix as of 02/24 but will continue to be on baby aspirin for life due to her stent placement. She will continue the baby aspirin through the time surgery. She did have an echocardiogram done at that time which showed ejection fraction at 50% with grade 1 diastolic dysfunction. She has been cleared from cardiology standpoint. She has seen her primary care doctor and has been cleared as well. Patient's nasal swab was negative. Hemoglobin 14.0 platelets were 300. Chem panel is within normal limits creatinine is 0.87
[2025-03-05] VITALS (15 sets, daily range): BP systolic 95–144; BP diastolic 65–87; PULSE 67–90; RESP 10–22; TEMP 35.8–36.5; O2SAT 94–100
--- NOTE | ~2025-03-05 | XR_ITS ---
EXAMINATION: [id number] DATE: 03/05/2025 10:55 CDT INDICATION: Right knee arthroplasty TECHNIQUE: 2 views right knee FINDINGS: There is a right total knee arthroplasty in expected position. Subcutaneous gas with fluid and air in the joint are consistent with recent surgery. No evidence of periprosthetic fracture. IMPRESSION: 1. Recent right total knee arthroplasty. Reviewed, dictated and finalized at location A.
[2025-03-05] MEDS: LACTATED RINGERS 1,000 ML 30 ML IV CONT ×2 (07:00→10:37)
[2025-03-05] MEDS: VANCOMYCIN HCL 1,000 MG in SODIUM CHLORIDE 0.9% IV 250 ML 250 MG IVPB ×2 (07:00→18:03)
[2025-03-05] MEDS: TRANEXAMIC ACID 1,000MG/ISO100 1,000 MG/100 ML BAG 200 MG IVPB (07:10)
[2025-03-05] MEDS: ACETAMINOPHEN 500 MG TABLET 1000 MG PO (07:10)
--- NOTE | 2025-03-05 07:14 | WPDHPUPDATE1 ---
History and Physical Update Update Date/Time: 03/05/25 07:14 History and Physical has been reviewed, including an updated exam of the patient. There are NO changes in the patient's condition. Risks, benefits, and alternatives have been discussed and questions answered. Patient agrees to proceed with procedure.
--- NOTE | 2025-03-05 07:23 | P.PNAN_ITS ---
Anes - Initial Pre Proc Eval Procedure: Operation Date: 03/05/25 07:30 Proposed Procedures p Right Total Knee Arthroplasty - Javier West MD Date/Time: 03/05/25 07:23 Surgeon: Javier West MD Pre Op Diagnosis: oa right knee Patient Data Age: 65 Gender: F Height: 1.63 m Weight: 72.4 kg Last Vital Signs Temp 97.1 F L 03/05/25 07:00 Pulse 79 03/05/25 07:00 Resp 16 03/05/25 07:00 BP 95/65 L 03/05/25 07:00 Pulse Ox 97 03/05/25 07:00 O2 Del Method Room Air 03/05/25 07:00 Allergies Allergy/AdvReac Type Severity Reaction Status Date / Time morphine AdvReac Severe MIGRANES Verified 02/10/25 12:12 Home Medications ?Medication ?Instructions ?Recorded ?Confirmed ?Type atorvastatin 80 mg tablet (Lipitor) 80 mg PO DAILY 10/29/24 02/10/25 History clopidogrel 75 mg tablet 75 mg PO DAILY 10/29/24 02/10/25 History gabapentin 300 mg capsule 600 mg PO QHS 10/29/24 02/10/25 History hydrocodone 5 mg-acetaminophen 325 1 tablet PO Q6H PRN pain 10/29/24 02/10/25 History mg tablet metoprolol succinate 100 mg 100 mg PO .PM 10/29/24 02/10/25 History tablet,extended release 24 hr aspirin 81 mg tablet 81 mg PO DAILY 12/20/24 02/10/25 History Laboratory Tests 03/05/25 06:43 Blood Type Pending Antibody Screen Pending Patient hx anesthesia problems: none Family hx anesthesia problems: none Results Review: All pre-operative results and documents have been reviewed as part of the pre- operative evaluation. [facility] Surgical History Surgical History History of back surgery History of hip surgery right History of left knee surgery History of mastectomy Social History Social History (Updated 12/19/24 @ 08:59 by Prudence Acosta CMA) Smoking packs per day: 1 Smoking cigarettes per day: 20.0 Years smoked: 30 Smoking pack-years: 30.00 Smoking status: Former smoker Tobacco type: cigarettes Second hand tobacco smoke exposure: Yes Smoking end date: 07/30/04 Additional smoking assessment comments: NO Nicotine in system Alcohol intake: current Alcohol use details: 1 monthly Substance use: never Do You Feel Safe in your Home?: Yes Lack of Transportation: No Lack of Food: Never True Current Housing: I Have Housing Concerned About Future Housing: No Difficulty Paying Gas/Electric Bills: No Difficulty Paying for Meds: No Currently Unemployed: No Education: High School Diploma/GED Difficulty w/ Childcare or Family Care: No Living arrangements: with family Spiritual care concerns: No Anes - Eval Final PreProcedure Day of Procedure 03/05/25 07:23 Patient weight: normal Heart: regular rate and rhythm Lungs: clear to auscultation Airway: Mallampati scale class II Neurological: alert and oriented Last oral intake: >/= 8 hours ASA classification: III Emergent: no Anesthetic plan: proceed Anesthesia type and monitoring: general ETT and standard monitoring Results Review: All pre-operative results and documents have been reviewed as part of the pre- operative evaluation. Informed Consent: The patient's anesthetic plan and its attendant risks and benefits were discussed with the patient/family/POA. Questions were solicited and answers provided to the satisfaction of the patient/family/POA.
[2025-03-05] MEDS: ceFAZolin 2 GM in SODIUM CHLORIDE 0.9% IV 50 ML 100 ML IVPB (07:29)
[2025-03-05] MEDS: SODIUM CHLORIDE 0.9% IV 37.7 ML, MORPHINE SULFATE INJ (*CRX) 2 MG, ROPivacaine HCL 1% 2... INFILTRATE (08:31)
[2025-03-05] MEDS: TRANEXAMIC ACID 1,000 MG/10 ML AMPUL 1000 MG IV PUSH (09:47)
[2025-03-05] MEDS: KETOROLAC 15 MG/ML VIAL (*BKC) 7.5 MG IV PUSH ×3 (09:47→21:52)
[2025-03-05] MEDS: fentaNYL CITRATE INJ (*CRX) 100 MCG/2 ML VIAL 25 MCG IV PUSH ×8 (10:41→11:25)
--- NOTE | 2025-03-05 10:48 | PM.OP ---
Procedure Note - Brief Procedure Note - Brief Date of procedure: 03/05/25 oa right knee Procedure performed: Right total knee arthroplasty Surgeon: KRISHAN Sheikh Findings: 65-year-old female underwent right total knee arthroplasty on 03/05. I was involved in the procedure including positioning the patient on the OR table in 1st assisting through the time surgery. Total time spent was 2 and and 1/2 hours
--- NOTE | 2025-03-05 10:49 | W.PM.PROC2 ---
Procedure Note - Detailed Date of Procedure 03/05/25 Pre-op Diagnosis oa right knee Post-op Diagnosis Same Procedure Performed Right total knee replacement Surgeon Javier West MD Floor Supervisor Bimal Anesthesia General Description of Procedure Patient was brought to the operating room and general anesthesia was administered. She received 2 g of Ancef weight based vancomycin 1 g of TXA preoperatively. The right knee was prepped draped usual fashion. Limb was exsanguinated tourniquet elevated to 275 mmHg. A 7 in longitudinal midline incision was used and a vastus medialis splitting approach utilized. A split was made at the level of the superior pole of patella. Quadriceps synovectomy carried out partial excision of infrapatellar fat pad performed. The patella had normal cartilage thickness. Mild central chondromalacia and I felt this was most suitable for non resurfacing. A conservative lateral facetectomy was performed. The a guide ernestina was inserted down the canal after aspiration of canal contents and using the 5 degree valgus cutting bushing 9 mm of bone removed the distal femur. Because of medial femoral osteophytes the thickness of the cut was somewhat diminished. Next the tibia was cut removing 2 mm of bone from the low point of the medial tibial plateau. Typical anteromedial wear pattern identified. This removed 9 mm laterally. Meniscal remnants were excised and the PCL recessed. The flexion gap measured 11 mm laterally and 9 mm medially. The femoral sizing guide was applied to the distal femur set at 3? of external rotation which matched Whitesides line. Posterior referencing pinholes were placed and the size 65 vanguard AP cutting block applied AP and chamfer cuts were made. This gave us a flush cut anteriorly with about a mm of overhang medial to lateral. Alignment of the tibial cut confirmed. The tibia was sized to a 71 which fit line to line anteromedial to posterolateral at proper rotation and this was punched. Trialing with the 10 insert, we had about 1.5 mm of opening laterally at 90? and 2.5 mm medially. In extension we lacked about 7 or 8? with no play medially or laterally. An additional 2 mm of bone was removed from the distal femur chamfer cuts revised. With the 10 the knee had a barely positive bounce coming close to full extension but not quite and had no play laterally and 0.5 mm of medial opening to valgus stress. Therefore an additional 1 mm of bone was removed the distal femur chamfer cuts revised. This time on trialing the knee came out to full extension with negative bounce with 1.5 mm of medial opening and mm of lateral opening. We did not require a posterior capsular release. Residual posterior condylar bone proximal to the femoral trial was removed. Lug holes were drilled for the femur. A cyst in the posterior central tibial plateau was identified that was approximately 12 mm in diameter and about 15 mm deep. This was curetted of residual gelatinous soft tissue to a sclerotic bone surface. I elected to fill this with cement at time of cementation. Step drill was used to make multiple perforations in the tibial plateau and distal femur. Her bone was a little bit softer than average. Two batches of methylmethacrylate were mixed 1 with gentamicin powder. Cement was immediately applied to the 71 vanguard tibial tray and the size 65 right CR femoral component. Cement applied the tibial plateau pressurized and tibial component fully seated. Cement applied the femur the femoral component fully seated and the knee brought into extension with an 11 mm 5 and 1 insert for pressurization. Tourniquet was released at 99 minutes. After cement hardening excess cement was sought for removed and hemostasis was achieved. On trialing the 10 was found to have the same parameters as above. Patellar tracking was not perfect until we did about a 2.5 cm lateral retinacular release 1 cm lateral to the patella. This gave perfect patellar tracking throughout range of motion. Local anesthetic cocktail was injected in the periarticular soft tissues. Wound was thoroughly irrigated again with Ancef solution and the size 10 insert placed locked with a locking pin range of motion stability patellar tracking reconfirmed. Arthrotomy was closed with number 2 Vicryl and 1. Unidirectional barbed Stratafix suture and the split closed with 1. Vicryl. Coyle flexion with the arthrotomy closed 140? with full extension and negative bounce. Skin closed with 2 subcutaneous Vicryl 3-0 subcuticular Monocryl and glue. EBL was 200 cc. Two additional g of Ancef g of TXA given time wound closure. There were no complications and she was transferred postop recovery room stable condition. [facility] Billing Surgery - Charge Forward: Surgery Billing (Right total knee replacement)
[2025-03-05] MEDS: HYDROmorphone HCL INJ (*CRX) 1 MG/ML SYR 5 MG IV PUSH (11:20)
[2025-03-05] MEDS: oxyCODONE HCL (*CRX) 5 MG TAB IR PO ×4 (12:11→23:24)
[2025-03-05] MEDS: SODIUM CHLORIDE 0.9% IV 1,000 ML 125 ML IV CONT (12:12)
--- NOTE | 2025-03-05 12:21 | ADMGEN ---
This patient, Mary Lou Llanes, was admitted to [facility] Surg Room 319-01. Patient/family oriented to hospital policies and general routines including ID bracelet, bed and alarms, visiting hours, pain management, procedures, bathroom and other care routines, personal items, smoking policy, room service/diet, and visiting hours. Information on how to activate the Rapid Response Team has been discussed. Patient/Family are encouraged to report perceived risks to care and to ask questions if they do not understand what they are told or what they should do.
--- NOTE | 2025-03-05 13:45 | P.CONIM_ITS ---
Assessment and Plan Assessment and plan (1) Primary osteoarthritis of right knee: Code(s): M17.11 - Unilateral primary osteoarthritis, right knee Status: Acute Assessment and Plan: Status post total right knee Managed by Orthopedics Pain control per Orthopedics Vahid Postop antibiotics (2) Hyperlipidemia: Code(s): E78.5 - Hyperlipidemia, unspecified Status: Acute Assessment and Plan: Continue statin (3) ACS (acute coronary syndrome): Code(s): I24.9 - Acute ischemic heart disease, unspecified Status: Acute Assessment and Plan: Continue aspirin, Lipitor, metoprolol HPI Date of Consult Consult date: 03/05/25 Requesting Physician: Javier West MD Primary Care Provider: Harpreet Duarte, Consult Narrative Reason for consult: Medical management Narrative: Mary Lou Llanes is a 65 year old female with history of right knee are osteoarthritis, hyperlipidemia, neuropathy presents the hospital for a planned total right knee. Patient was seen after OR. Patient states that she has no postop nausea or vomiting. She states that she is able to eat. She states the pain was well controlled and she has got to bathroom. Hospitalist team has been consulted for medical management. Review of Systems Review of Systems: 12 systems were reviewed and are negativ e except for as per HPI. [facility] Surgical History Surgical History History of back surgery History of hip surgery right History of left knee surgery History of mastectomy Social History Social History (Updated 12/19/24 @ 08:59 by Prudence Acosta [facility]) Smoking packs per day: 1 Smoking cigarettes per day: 20.0 Years smoked: 30 Smoking pack-years: 30.00 Smoking status: Former smoker Second hand tobacco smoke exposure: Yes Additional smoking assessment comments: NO Nicotine in system Alcohol intake: current Alcohol use details: 1 monthly Substance use: never Do You Feel Safe in your Home?: Yes Lack of Transportation: No Lack of Food: Never True Current Housing: I Have Housing Concerned About Future Housing: No Difficulty Paying Gas/Electric Bills: No Difficulty Paying for Meds: No Currently Unemployed: No Education: High School Diploma/GED Difficulty w/ Childcare or Family Care: No Living arrangements: with family Spiritual care concerns: No Meds Home Medications and Allergies Home Medications ?Medication ?Instructions ?Recorded ?Confirmed ?Type atorvastatin 80 mg tablet (Lipitor) 80 mg PO DAILY 10/29/24 02/10/25 History clopidogrel 75 mg tablet 75 mg PO DAILY 10/29/24 03/05/25 History gabapentin 300 mg capsule 600 mg PO QHS 10/29/24 02/10/25 History hydrocodone 5 mg-acetaminophen 325 1 tablet PO Q6H PRN pain 10/29/24 02/10/25 History mg tablet metoprolol succinate 100 mg 100 mg PO .PM 10/29/24 02/10/25 History tablet,extended release 24 hr aspirin 81 mg tablet 81 mg PO DAILY 12/20/24 02/10/25 History Allergies Allergy/AdvReac Type Severity Reaction Status Date / Time morphine AdvReac Severe MIGRANES Verified 03/05/25 07:24 Vital Signs Vital Signs - 24 hr 03/05/25 07:00 03/05/25 10:37 03/05/25 10:50 Temperature 97.1 F L 97.7 F Pulse Rate 79 90 82 Respiratory Rate 16 22 H 17 Blood Pressure 95/65 L 140/84 136/77 Pulse Oximetry 97 100 100 Oxygen Delivery Room Air Simple Face Mask Simple Face Mask Oxygen Flow Rate 10 10 08/07/25 11:05 03/05/25 11:20 03/05/25 11:35 Temperature Pulse Rate 81 74 74 Respiratory Rate 10 L 10 L 18 Blood Pressure 143/77 H 121/76 124/73 Pulse Oximetry 100 94 98 Oxygen Delivery Simple Face Mask Room Air Nasal Cannula Oxygen Flow Rate 10 2 03/05/25 12:15 03/05/25 12:33 03/05/25 12:35 Temperature 96.9 F L 96.6 F L Pulse Rate 75 68 Respiratory Rate 18 18 Blood Pressure 138/87 141/84 H Pulse Oximetry 100 100 100 Oxygen Delivery Nasal Cannula Oxygen Flow Rate 2 Exam Narrative: General: well appearing, appears stated age. HEENT: normocephalic, atraumatic. Mucous membranes moist. EOMI, PERRLA, bilateral sclera anicteric, no conjunctival injection. Neck supple without JVD, lymphadenopathy, or bruit. Respiratory: clear to ascultation bilaterally. No rales/rhonic/wheezes. Cardiovascular: Regular rate and rhythm, normal S1-S2 upon ascultation. No murmurs, rubs, or clicks. PMI is nondisplaced, capillary refill less than 3 second. Abdomen: Soft, round, no pulsatile masses, nondistended and nontender. No rebound, no guarding. No CVA tenderness, no hepatosplenomegaly. Bowel sounds present to all four quadrants. No high pitch or tinkling sounds, resonant to percussion. Extremities: No cyanosis, clubbing, or edema present. Pulses are palpable 2/2. Right knee surgical dressing clean dry intact Neuro: Alert and orientated x 4. PERRLA. Cranial nerves 2-12 intact without focal deficit. Skin: Warm, dry, and intact, without rash, erythema, or lesion. Psych: pleasant, cooperative, normal speech, normal affect, no hallucinations, no dysarthia Quality VTE Prophylaxis VTE prophylaxis: mechanical ordered and pharmacologic ordered Hospitalist [facility] Advance Care Plan I have confirmed that the patient's Advanced Care Plan is present, code status is documented, or surrogate decision maker is listed in patient medical record.: Yes Medication Reconciliation I have utilized all available resources to obtain, update and review the patients current medications (includes all prescriptions, OTC, herbals, cannabis, and nutritional supplements).: Yes
[2025-03-05] MEDS: ceFAZolin 2 GM/D5W 50 ML 2 GM/50 ML BAG IVPB ×2 (14:00→23:24)
[2025-03-05] MEDS: ACETAMINOPHEN 325 MG TABLET 650 MG PO ×3 (14:00→21:51)
[2025-03-05] MEDS: ONDANSETRON INJ 4 MG/2 ML VIAL IV PUSH (15:07)
[2025-03-05] MEDS: SENNA/DOCUSATE SODIUM TABLET 2 TAB PO (16:14)
[2025-03-05] MEDS: METOPROLOL SUCCINATE EXT REL 100 MG TABCR PO (18:03)
[2025-03-05] MEDS: FAMOTIDINE 20 MG TABLET PO (21:51)
[2025-03-05] MEDS: GABAPENTIN 300 MG CAPSULE 600 MG PO (21:51)
[2025-03-06 00:18] VITALS: BP 128/74; PULSE 82; RESP 16; TEMP 36.1; O2SAT 100
[2025-03-06] MEDS: ACETAMINOPHEN 325 MG TABLET 650 MG PO ×3 (02:46→10:48)
[2025-03-06 04:38] VITALS: BP 119/70; PULSE 85; RESP 16; TEMP 36.6; O2SAT 100
[2025-03-06] MEDS: oxyCODONE HCL (*CRX) 5 MG TAB IR PO ×2 (04:46→08:41)
[2025-03-06] MEDS: ceFAZolin 2 GM/D5W 50 ML 2 GM/50 ML BAG IVPB (06:19)
[2025-03-06 06:41] LABS: Hematocrit 33.9 % (37.0-47.0); Hemoglobin 10.9 g/dL (12.0-15.0); Immature Granulocyte Percent A 0.5 % (0-0.5); Lymphocytes Absolute Auto 1.51 K/mm3 (0.9-3.2); Mean Corpuscular HGB Conc 32.2 g/dl (32-36); Mean Corpuscular Hemoglobin 31.2 pg (26-34); Mean Corpuscular Volume 97.1 fl (80-100); Nucleated Red Blood Cells Absolute Auto 0.000 K/mm3 (0.0-0.012); Nucleated Red Blood Cells Perc 0.0 % (0.0-0.2); Platelet Count Result 225 k/mm3 (150-375); Red Blood Count 3.49 M/mm3 (4.2-5.4); White Blood Count 12.9 K/mm3 (4.5-10.0)
[2025-03-06 07:09] LABS: Anion Gap 3 mmol/L (4-12); Blood Urea Nitrogen 11 mg/dL (7-17); Calcium 8.8 mg/dL (8.4-10.2); Carbon Dioxide 29 mmol/L (22-30); Chloride 106 mmol/L (98-107); Estimated CRCL calculation 50 ml/min; Estimated Glomerular Filt Rate 58; Glucose 99 mg/dL (65-110); Potassium 4.5 mmol/L (3.4-5.0); Sodium 138 mmol/L (137-145)
[2025-03-06] MEDS: VANCOMYCIN HCL 1,000 MG in SODIUM CHLORIDE 0.9% IV 250 ML 250 MG IVPB (07:18)
--- NOTE | 2025-03-06 07:26 | P.PNOP_ITS ---
Subjective Subjective Date/Time Seen: 03/06/25 07:26 Interval history: Postop day 1 patient is alert. She is afebrile vital signs are stable. Neurovascularly she is intact. Pain is well controlled. Patient was up yesterday walking with therapy. She has been to the restroom and urinating multiple times overnight. Morning labs are noted. Patient's dressing is dry and intact. She is able to flex the knee to 120? in the bed this morning. She has mild swelling in the knee itself. Overall patient is doing very well and she is anxious to go home. She will work with therapy this morning and once IV antibiotics been completed she will be discharged home late this more Objective Data Vital Signs Vital Signs: Vital Signs - 24 hr 03/05/25 10:37 03/05/25 10:50 03/05/25 11:05 Temperature 97.7 F Pulse Rate 90 82 81 Respiratory Rate 22 H 17 10 L Blood Pressure 140/84 136/77 143/77 H Pulse Oximetry 100 100 100 Oxygen Delivery Simple Face Mask Simple Face Mask Simple Face Mask Oxygen Flow Rate 10 10 10 03/05/25 11:20 03/05/25 11:35 03/05/25 12:15 Temperature 96.9 F L Pulse Rate 74 74 75 Respiratory Rate 10 L 18 18 Blood Pressure 121/76 124/73 138/87 Pulse Oximetry 94 98 100 Oxygen Delivery Room Air Nasal Cannula Oxygen Flow Rate 2 03/05/25 12:33 03/05/25 12:35 03/05/25 13:00 Temperature 96.6 F L 96.9 F L Pulse Rate 68 76 Respiratory Rate 18 12 Blood Pressure 141/84 H 132/80 Pulse Oximetry 100 100 100 Oxygen Delivery Nasal Cannula Oxygen Flow Rate 2 03/05/25 14:00 03/05/25 14:29 03/05/25 15:20 Temperature 96.5 F L Pulse Rate 67 Respiratory Rate 12 Blood Pressure 131/80 Pulse Oximetry 100 98 Oxygen Delivery Room Air Room Air Oxygen Flow Rate 03/05/25 17:33 03/05/25 20:30 03/05/25 20:40 Temperature 97.3 F L 97.2 F L Pulse Rate 73 80 Respiratory Rate 18 16 Blood Pressure 144/86 H 138/71 Pulse Oximetry 100 99 97 Oxygen Delivery Room Air Oxygen Flow Rate 03/06/25 00:18 03/06/25 04:38 Temperature 97.0 F L 97.9 F Pulse Rate 82 85 Respiratory Rate 16 16 Blood Pressure 128/74 119/70 Pulse Oximetry 100 100 Oxygen Delivery Oxygen Flow Rate Intake/Output Intake/Output: Intake & Output 03/03/25 03/04/25 03/05/25 03/06/25 23:59 23:59 23:59 23:59 Intake Total 940 Balance 940 Meds/Results Medications: Active Medications Generic Name Dose Route Start Last Admin Trade Name Freq PRN Reason Stop Dose Admin Acetaminophen 650 mg 03/05/25 14:00 03/06/25 06:41 Acetaminophen 325 Mg Tablet PO 650 mg Q4H RAHEL Administration Apixaban 2.5 mg 03/06/25 09:00 Apixaban 2.5 Mg Tablet PO 03/17/25 21:01 Q12HR [facility] Aspirin 81 mg 03/06/25 09:00 Aspirin 81 Mg Enteric Tablet PO 04/05/25 08:59 DAILY [facility] Atorvastatin Calcium 80 mg 03/06/25 09:00 Atorvastatin 40 Mg Tablet PO DAILY [facility] Cefdinir 300 mg 03/06/25 09:00 Cefdinir 300 Mg Capsule PO Q12HR RAHEL Celecoxib 100 mg 03/06/25 08:00 Celecoxib 100 Mg Capsule PO DAILY@0800 [facility] Diphenhydramine HCl 25 mg 03/05/25 11:48 Diphenhydramine Hcl Inj 50 Mg/Ml Vial IV PUSH Q6H PRN Itching Famotidine 20 mg 03/05/25 21:00 03/05/25 21:51 Famotidine 20 Mg Tablet PO 20 mg Q12HR RAHEL Administration Gabapentin 600 mg 03/05/25 21:00 03/05/25 21:51 Gabapentin 300 Mg Capsule PO 600 mg QHS RAHEL Administration Hydromorphone HCl 0.5 mg 03/05/25 11:48 Hydromorphone Hcl Inj (*Crx) 2 Mg/Ml Vial IV PUSH Q2H PRN Breakthrough Pain Rated 4-6 or NPO Cefazolin Sodium 2 gm in 50 mls @ 100 mls/hr 03/05/25 15:00 03/06/25 06:19 Ancef 2 Gm/D5w 50 Ml IVPB 03/06/25 07:29 100 mls/hr Q8H RAHEL Administration Vancomycin HCl 1,000 mg/ 250 mls @ 250 mls/hr 03/05/25 19:00 03/06/25 07:18 Sodium Chloride IVPB 03/06/25 07:59 250 mls/hr Q12H RAHEL Administration Metoprolol Succinate 100 mg 03/05/25 18:00 03/05/25 18:03 Metoprolol Succinate Ext Rel 100 Mg Tabcr PO 100 mg QPM RAHEL Administration Naloxone HCl 0.1 mg 03/05/25 11:48 Naloxone Hcl 0.4 Mg/Ml Vial IV PUSH Q2M PRN Opiate Reversal Ondansetron HCl 4 mg 03/05/25 11:48 03/05/25 15:07 Ondansetron Inj 4 Mg/2 Ml Vial IV PUSH 4 mg Q4H PRN Administration Nausea And Vomiting Oxycodone HCl 5 mg 03/05/25 12:00 03/06/25 04:46 Oxycodone Hcl (*Crx) 5 Mg Tab Ir PO 5 mg Q4H RAHEL Administration Oxycodone HCl 5 mg 03/05/25 11:48 Oxycodone Hcl (*Crx) 5 Mg Tab Ir PO Q4H PRN Pain Rated 7-10 Polyethylene Glycol 17 gm 03/06/25 09:00 Polyethylene Glycol 3350 17 Gm Powd.Pack PO QAM RAHEL Senna/Docusate Sodium 2 tab 03/05/25 17:00 03/05/25 16:14 Senna/Docusate Sodium Tablet PO 2 tab BID RAHEL Administration Radiology Results: ITS Impressions Knee X-Ray 03/05/25 10:55 IMPRESSION: 1. Recent right total knee arthroplasty. Labs Labs: Laboratory Results - last 24 hr 03/05/25 03/06/25 06:43 06:10 WBC 12.9 H RBC 3.49 L Hgb 10.9 L D Hct 33.9 L MCV 97.1 MCH 31.2 MCHC 32.2 RDW 12.8 Plt Count 225 MPV 9.5 Immature Gran % (Auto) 0.5 Neut % (Auto) 80.3 H Lymph % (Auto) 11.7 L Dane % (Auto) 7.2 Eos % (Auto) 0.1 Baso % (Auto) 0.2 Lymph # (Auto) 1.51 Dane # (Auto) 0.9 H Eos # (Auto) 0.0 Baso # (Auto) 0.0 Abs Immat Gran (auto) 0.07 H Absolute Neuts (auto) 10.3 H Absolute Nucleated RBC 0.000 Nucleated RBC % 0.0 Sodium 138 Potassium 4.5 Chloride 106 Carbon Dioxide 29 Anion Gap 3 L BUN 11 Creatinine 0.97 Estim Creat Clear Calc 50 Estimated GFR 58 L Glucose 99 Calcium 8.8 Blood Type A Positive Antibody Screen Negative
[2025-03-06 08:10] VITALS: BP 126/68; PULSE 80; RESP 16; TEMP 36.3; O2SAT 97
[2025-03-06] MEDS: FAMOTIDINE 20 MG TABLET PO (08:41)
[2025-03-06] MEDS: APIXABAN 2.5 MG TABLET PO (08:41)
[2025-03-06] MEDS: ATORVASTATIN 40 MG TABLET 80 MG PO (08:41)
[2025-03-06] MEDS: CELECOXIB 100 MG CAPSULE PO (08:41)
[2025-03-06] MEDS: CEFDINIR 300 MG CAPSULE PO (08:41)
[2025-03-06] MEDS: SENNA/DOCUSATE SODIUM TABLET 2 TAB PO (08:41)
[2025-03-06] MEDS: ASPIRIN 81 MG ENTERIC TABLET PO (08:41)
== END 2025-03-06 11:10 | disposition home or self-care (01) ==
LOC: ANHSURGERY 06:01 → ANH3MEDSUR 11:50
PROVIDERS: Physician Assistant Surgical; PCP Internal Medicine; Visit Provider Orthopaedic Surgery
PROC: (CPT 27447; principal; 2025-03-05 07:30)
DX: M17.11 Unilateral primary osteoarthritis, right knee (principal); M94.261 Chondromalacia, right knee; M25.461 Effusion, right knee; E78.5 Hyperlipidemia, unspecified; I24.9 Acute ischemic heart disease, unspecified; Z79.02 Long term (current) use of antithrombotics/antiplatelets; Z79.891 Long term (current) use of opiate analgesic; Z79.82 Long term (current) use of aspirin; Z98.890 Other specified postprocedural states; Z96.652 Presence of left artificial knee joint; Z95.5 Presence of coronary angioplasty implant and graft; Z98.1 Arthrodesis status; Z87.891 Personal history of nicotine dependence
CPT/HCPCS: 27447; 36415; 73560; 80048; 85025; 86850; 86900; 86901; 97110; 97116; 97161; 97165; 97530; 97535; J0690; A9270; C1713; C1776; J0166; J1100; J1171; J1885; J2003; J2250; J2270; J2405; J2704; J2795; J3010; J3373; J7030; J7050; J7120

== ENCOUNTER 2025-04-03 11:00 | Outpatient (RCR) | payer MEDICARE, SELFPAY ==
--- NOTE | 2025-03-09 09:29 | OPREHPOC ---
Outpatient Therapy Plan of Care This is a Multidisciplinary Plan of Care that may contain components documented by all disciplines (PT, OT, and ST.) PT Problem 1 PT Problem #1 Knowledge Deficit PT Goal 1 Goal / Goal Update *independent with HEP * correct gait pattern with cane Target Visit 8 PT Problem 2 PT Problem #2 Pain PT Goal 1 Goal / Goal Update 1* pain rating at worst of 4/10 2* pt report walking/standing activity tolerance of 45 minutes Target Visit 8 PT Problem 3 PT Problem #3 Impaired Range of Motion PT Goal 1 Goal / Goal Update *increase R knee ROM to improve gait and transfer skills: in sitting active 1* extension 0' 2* flexion 120' Target Visit 8 PT Problem 4 PT Problem #4 Impaired Functional Mobility PT Goal 1 Goal / Goal Update 1* pt ambulate with cane 2* 2 minute walking test distance with cane, 475' 3* 5 reps sit/stand without use of UE's Target Visit 8 PT Problem 5 PT Problem #5 Impaired Strength PT Goal 1 Goal / Goal Update gross strength of R hip and knee 4/5, to improve mobility and transfer skills Target Visit 8
--- NOTE | 2025-03-09 09:29 | PTOPEVAL1 ---
Assessment and note entered by Teetee Maxwell PT Evaluation Information Assessment Status Evaluation ICD-10 Condition Codes (PT) Difficulty Walking R26.2,Abnormalities of gait and mobility R26.9,Weakness R53.1,Encounter for other orthopedic aftercare Z47.89,Aftercare following joint replacement surgery Z47.1 Onset 03-05-25 Subjective Information since home from surgery, doing well with walking- using wheeled walker, getting up and walking every 30 minutes; keeping leg elevated; doing the knee stretches every hour; doing the stairs at home without any issues; want to get back to bicycling outdoors and have a stationary bike at home; activity: prior to surgery, no assistive device, retired; home with ; 3 entry steps into split level home with bilateral hand rails; Reported Pain Level Pain Score Self Report Additional Pain Score Comments pain range in the past few days: 1-8/10 increase pain: standing/walking 15 minutes decrease pain: taking prescription pain meds every 4-5 hours; with sleeping: able to sleep through the night- using pillow between legs Assessment PT Clinical Summary Cathie is s/p R TKR on 03-05-25. Prior to surgery, she was active, retired and enjoys bicycling outdoors on the bike trails. At home, she is doing well with her mobility with the wheeled walker and did not voice any concerns about her mobility. Hunter was present during eval and supportive to pt. Medical history: includes R THR, L TKR, back surgery x3 and breast cancer. With the evaluation: LE functional scale self rating of 56% limitation in activity; ROM of R knee is (-5') to 118'; 2 minute walking test distance of 420' with wheeled walker; 5 reps sit/ stand with 1 UE time of 14 seconds; gross strength of R hip and knee 4-/5; minimal edema and bruising over medial thigh and medial & lateral knee joint. Skilled PT services for treatment s/p R TKR: modalities PRN for pain and edema; therapeutic exercises to increase ROM and strength of knee with education for HEP progression and gait training to cane as tolerated. Plan of Care Interventions Intermittent Compression Pump,Manual Therapy,Neuro Re-education,Patient/Caregiver Education, Therapeutic Activities,Therapeutic Exercise,Other Other Interventions taping PT Services Indicated Yes Treatment Frequency and 2x/wk for 8 visits Duration These treatments will address the objective and functional deficits as defined above. The patient will be advanced safely and appropriately in order for the patient to progress towards his/her prior level of function. Additional exercises will be introduced and as well as a comprehensive home exercise program upon discharge, if needed, ?to ensure carryover of functional gains achieved in the clinic. This treatment plan has been reviewed and agreement upon by the patient.
--- NOTE | 2025-03-09 09:30 | PCPTNOTE ---
pt was 10 minutes late for today's initial evaluation appt.
--- NOTE | 2025-04-03 11:43 | OPREHPOC ---
Outpatient Therapy Plan of Care This is a Multidisciplinary Plan of Care that may contain components documented by all disciplines (PT, OT, and ST.) PT Problem 1 PT Problem #1 Knowledge Deficit PT Goal 1 Goal / Goal Update *independent with HEP * correct gait pattern with cane 04-03-25 d/c goals met Target Visit 8 Progress Met PT Problem 2 PT Problem #2 Pain PT Goal 1 Goal / Goal Update 1* pain rating at worst of 4/10 2* pt report walking/standing activity tolerance of 45 minutes 04-03-25 d/c goals not met; #1 is 6/10 and #2 is 30 min Target Visit 8 Progress Not Met PT Problem 3 PT Problem #3 Impaired Range of Motion PT Goal 1 Goal / Goal Update *increase R knee ROM to improve gait and transfer skills: in sitting active 1* extension 0' 2* flexion 120' 04-03-25 d/c goals met Target Visit 8 Progress Met PT Problem 4 PT Problem #4 Impaired Functional Mobility PT Goal 1 Goal / Goal Update 1* pt ambulate with cane 2* 2 minute walking test distance with cane, 475' 3* 5 reps sit/stand without use of UE's 04-03-25 d/c goals met Target Visit 8 Progress Met PT Problem 5 PT Problem #5 Impaired Strength PT Goal 1 Goal / Goal Update gross strength of R hip and knee /5, to improve mobility and transfer skills 25 d/c goal met Target Visit 8 Progress Met
--- NOTE | 2025-04-03 11:43 | PTOPDC ---
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 Reported Pain Level Pain Score 0: Self Report Additional Pain Score Comments pain range in the past week 0-6/10 increase pain end of day and more activity; decrease pain: taking oxycodone and tylenol taking meds only end of the day; report tolerances: standing/walking 30 minutes Assessment PT Clinical Summary Mary Lou has received a total of 8 PT sessions. Today's assessment: pain rating of 0-6/10; increase pain at end of the day and using oxycodone and tylenol; self assessment LE functional scale rating of 24% limitation in activity level; reported walking/standing activity tolerance of 30 minutes; no disruption with sleeping; AROM of knee in sitting 0-130'; good strength of R hip and knee; is walking without an assistive device for 2 minute walking distance of 490'; good gait pattern; education completed for HEP, gait pattern and activity. The goals were achieved, except pain rating at the worst and reported standing/walking tolerance. Discharge PT. She is to continue with her HEP and activity progression as tolerated. Plan of Care PT Services Indicated No
== END 2025-04-03 13:48 | disposition home or self-care (01) ==
LOC: ANHPT 11:00
PROVIDERS: PCP Internal Medicine; Visit Provider Orthopaedic Surgery
DX: R26.2 Difficulty in walking, not elsewhere classified (principal); R26.9 Unspecified abnormalities of gait and mobility; R53.1 Weakness; Z47.89 Encounter for other orthopedic aftercare; Z47.1 Aftercare following joint replacement surgery
CPT/HCPCS: 97110; 97116; 97140; 97161; 97530